=== PATIENT | female | born 1990 | race Caucasian/White ===

== ENCOUNTER 2022-04-16 16:53 | Inpatient (IN) | payer OTHER ==
[2022-04-16] MEDS ORDERED: Misoprostol 25 MCG (1/4 of 100 MCG) Tab VAG PRN ×2 (18:35)
[2022-04-16] MEDS ORDERED: Terbutaline 1 MG/ML SDV SUBCUT PRN (18:35)
[2022-04-16] MEDS ORDERED: Ondansetron 4 MG/2 ML SDV IVPUSH PRN (18:44)
[2022-04-16] MEDS ORDERED: Carboprost Tromethamine 250 MCG/1 ML Amp IM PRN (19:45)
[2022-04-16] MEDS ORDERED: Methylergonovine 0.2 MG/1 ML Amp IM PRN (19:45)
[2022-04-16] MEDS ORDERED: Sodium Chloride 0.9% 20 ML SDV IV PRN (19:45)
[2022-04-16] MEDS ORDERED: Water For Irrigation,Sterile 1,000 ML Container IRR PRN (19:45)
[2022-04-16] MEDS ORDERED: Sodium Chloride 0.9% 10 ML Syringe FLUSH PRN (19:45)
[2022-04-16] MEDS ORDERED: Lidocaine 1% 50 ML MDV INJECT PRN (19:45)
[2022-04-16] MEDS ORDERED: Sodium Chloride 0.9% 2.5 ML Syringe FLUSH PRN (19:45)
[2022-04-16] MEDS ORDERED: Tranexamic Acid 1,000 MG in Sodium Chloride 0.9% 100 ML IV PRN (19:45)
[2022-04-16] MEDS ORDERED: Butorphanol 1 MG/ML SDV IVPUSH PRN (19:45)
[2022-04-16] MEDS ORDERED: Misoprostol 200 MCG Tab PO PRN (19:45)
[2022-04-16] MEDS: Lactated Ringers 1,000 ML IV SCH (21:08)
[2022-04-16] MEDS ORDERED: Polyethylene Glycol 3350 Powder 17 GM Packet PO PRN (21:30)
[2022-04-17] MEDS: Lactated Ringers 1,000 ML IV SCH ×4 (03:14→23:29)
[2022-04-17] MEDS ORDERED: Famotidine 20 MG Tab PO PRN (08:00)
[2022-04-17] MEDS: Oxytocin/0.9 % Sodium Chloride 30 UNIT/500 ML BAG IV SCH (09:46)
[2022-04-18] MEDS: Lactated Ringers 1,000 ML IV SCH ×5 (05:52→22:41)
[2022-04-18] MEDS ORDERED: Ropivacaine/PF 400 MG/200 ML PCA ONE (09:31)
[2022-04-18] MEDS ORDERED: ePHEDrine 50 MG/ML SDV IVPUSH PRN (10:13)
[2022-04-18] MEDS ORDERED: Phenylephrine HCl In 0.9% NaCl 1 MG/10 ML Vial IVPUSH PRN (10:13)
[2022-04-18] MEDS ORDERED: Ropivacaine HCl/PF 400 MG in Premix Bag 1 BAG EPIDUR SCH (10:15)
[2022-04-18] MEDS: Oxytocin/0.9 % Sodium Chloride 30 UNIT/500 ML BAG IV SCH (15:32)
[2022-04-19] MEDS ORDERED: Lanolin 100% Cream 7 GM Tube TOP PRN (00:03)
[2022-04-19] MEDS ORDERED: Ibuprofen 400 MG Tab PO PRN (00:03)
[2022-04-19] MEDS ORDERED: Docusate Sodium 100 MG Cap PO PRN (00:03)
[2022-04-19] MEDS ORDERED: oxyCODONE 5 MG Tab PO PRN (00:03)
[2022-04-19] MEDS ORDERED: Benzocaine/Menthol 20%-0.5% Spray 78 GM Cannister TOP PRN (00:03)
[2022-04-19] MEDS ORDERED: Acetaminophen 500 MG Tab PO PRN (00:03)
[2022-04-19] MEDS ORDERED: Ibuprofen 800 MG Tab PO PRN (00:03)
[2022-04-19] MEDS ORDERED: Bisacodyl 10 MG Supp RECTAL PRN (00:03)
[2022-04-19] MEDS: Witch Hazel Medicated Pads 40/Jar TOP PRN (04:03)
[2022-04-19] MEDS: Acetaminophen 500 MG Tab PO PRN ×2 (09:30→19:59)
[2022-04-20] MEDS: Acetaminophen 500 MG Tab PO PRN (08:49)
[2022-04-20] MEDS: Witch Hazel Medicated Pads 40/Jar TOP PRN (10:13)
[2022-04-20] MEDS ORDERED: Measles, Mumps & Rubella Vaccine 0.5 ML SDV SUBCUT ONE (15:16)
== END 2022-04-20 16:45 | disposition home or self-care (01) | DRG 807 ==
LOC: MW.OB 16:53 → OBSVTOIN 04-18 23:42 → MW.OB 04-19 11:51
PROVIDERS: ADMIT Obstetrics & Gynecology; ATTEND Obstetrics & Gynecology
PROC: 10E0XZZ Delivery of Products of Conception, External Approach (ICD-10-PCS; principal; 2022-04-18)
PROC: 10907ZC Drainage of Amniotic Fluid, Therapeutic from Products of Conception, Via Natural or Artificial Opening (ICD-10-PCS; 2022-04-18)
PROC: 0HQ9XZZ Repair Perineum Skin, External Approach (ICD-10-PCS; 2022-04-18)
PROC: 10H07YZ Insertion of Other Device into Products of Conception, Via Natural or Artificial Opening (ICD-10-PCS; 2022-04-18)
PROC: 3E0R3BZ Introduction of Anesthetic Agent into Spinal Canal, Percutaneous Approach (ICD-10-PCS; 2022-04-18)
PROC: 00HU33Z Insertion of Infusion Device into Spinal Canal, Percutaneous Approach (ICD-10-PCS; 2022-04-18)
PROC: 3E0134Z Introduction of Serum, Toxoid and Vaccine into Subcutaneous Tissue, Percutaneous Approach (ICD-10-PCS; 2022-04-20)
DX: O40.3XX0 Polyhydramnios, third trimester, not applicable or unspecified (principal); Z37.0 Single live birth; O99.214 Obesity complicating childbirth; Z3A.40 40 weeks gestation of pregnancy; O70.0 First degree perineal laceration during delivery; Z20.822 Contact with and (suspected) exposure to COVID-19; Z23 Encounter for immunization
CPT/HCPCS: 36410; 36415; 51702; 59025; 59409; 82803; 85014; 85018; 85027; 86592; 86850; 86900; 86901; 90471; 90707; A9270-GY; J0595; J2590; J2795; J7120; U0002